=== PATIENT | male | born 1970 | race Caucasian/White ===

== ENCOUNTER → 2020-07-19 11:58 | Outpatient (CLI) | payer OTHER, SELFPAY ==
[2020-07-19 13:17] LABS: COVID19 -Nasal RAPID Negative (Negative)
== END ==
PROVIDERS: Family Provider Family Medicine; PCP Family Medicine; Visit Provider Nurse Practitioner Family
DX: Z01.812 Encounter for preprocedural laboratory examination (principal); Z20.822 Contact with and (suspected) exposure to COVID-19
CPT/HCPCS: 87635; C9803

== ENCOUNTER 2020-07-21 14:53 | Day surgery (SDC) | payer OTHER, SELFPAY ==
[2020-07-21] VITALS (10 sets, daily range): BP systolic 105–132; BP diastolic 64–87; PULSE 54–62; RESP 12–20; TEMP 36.4–36.8; O2SAT 93–99; BMI 27.7
--- NOTE | 2020-07-21 12:43 | P.HP_ITS ---
History of Present Illness History of Present Illness Date Patient Seen: 07/21/20 Chief complaint: SCREENING COLONOSCOPY Narrative: 49 year old male comes in today for consideration of a screening colonoscopy. There have been no lower GI symptoms suggesting disease such as change in bowel habits, bleeding, abdominal pain or anemia. There's been no family history of colon cancer or colon polyps. Overall health issues have been stable, including no major cardiac events for at least 6 weeks. PCP: Dr. 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 Alcohol drinks/day: 5 a week >5/day in last 3 mos: no Caffeine use/day: 1 Guns in home: yes Dental Care w/in 6 mos.: no Sun Exposure: occasionally Fall Risk: no falls in past year Seat Belt Use: yes Smoking Status: current every day smoker Tobacco Type: cigarettes Counseled to Quit Smoking: yes Packs/Day: 1 pack a week Drug Use: marijuana HIV High Risk Behavior: yes Patient History Family & Social History Tobacco & Substance use: Smoking Status Current every day smoker Meds Home Medications and Allergies Home Medications Medication Instructions Recorded Confirmed Type [VITAMINS] #0 07/15/12 06/12/19 History aspirin 81 mg PO QDAY #0 07/15/12 07/21/20 History albuterol sulfate 90 mcg/actuation 2 puff INHALATION Q4-6H PRN #8 gram 06/12/19 07/21/20 Rx aerosol inhaler inhalational spacing device #1 each 06/12/19 06/12/19 Rx omeprazole 20 mg PO DAILY 07/21/20 07/21/20 History Allergies Allergy/AdvReac Type Severity Reaction Status Date / Time captopril Allergy Unknown Verified 07/21/20 15:45 Review of Systems Review of Systems ROS: Yes All systems reviewed with the patient and are negative except as otherwise documented Exam Narrative Exam Narrative: GENERAL: Alert and oriented, appearing stated age and in no acute distress. HEENT: Head normocephalic/atraumatic. Pupils equal, round, and reactive to light and accomodation. Extraocular muscles intact. Tympanic membranes clear. Nasal mucosa moist, septum midline. Oral mucosa moist, no lesions. Neck soft and supple, no lymphadenopathy. LUNGS: Clear to ausculation bilaterally, no wheezes, rhonchi or rales. CV: Normal S1 and S2 with regular rate and rhythm, no audible murmurs, rubs or gallops. ABDOMEN: Soft, non-tender, non-distended, no organomegaly. Positive bowel sounds. EXTREMITIES: No clubbing, cyanosis, or edema. NEURO: Cranial nerves II through XII grossly intact, no focal deficits. PSYCH: Alert and oriented x 3. SKIN: No concerning lesions. Assessment & Plan Assessment & Plan narrative: 1. Screening for colon cancer Plan for colonoscopy. The nature and character of the procedure as well as anticipated results were discussed. The possibility of not completing the procedure was also discussed. Possible complications including aspiration pneumonia, bleeding, perforation and reaction to medications either for sedation or preparation and missed lesions were discussed. Questions were answered and proceeding to the colonoscopy was elected. Informed consent signed. I sincerely appreciate the referral allowing me to participate in this patient's care. Please contact me with any questions or concerns.
--- NOTE | 2020-07-21 12:45 | PM.OP.ENDO ---
Operative Date/Time/Diagnoses Date of procedure: 07/21/20 Procedure Notes SCOAP/Timeout: 4:20 p.m. Procedure in detail: ENDOSCOPIST: Tori Tucker MD Sedation RN: Priscilla Almaguer RN Sedation start time: 4:21 p.m. Sedation end time: 4:40 p.m. PROCEDURE: Colonoscopy INDICATIONS: 1. Screening for colon cancer MEDICATION: Levsin 0.125 mg sublingual, incremental doses of Versed and fentanyl until appropriate level sedation achieved. ASA CLASS: 2 CECAL WITHDRAWAL TIME: 7 minutes COMPLICATIONS: None. EXTENT OF PROCEDURE: Cecum. QUALITY OF PREP: Good with portions of liquid stool. PROCEDURE: Prior to insertion of the colonoscope, a digital rectal examination was accomplished with circumferential palpation of the distal rectal mucosa without significant findings being noted. The high-definition colonoscope was passed into the rectum in the usual fashion and advanced over to the cecum without difficulty. The ileocecal valve, appendiceal stoma, and medial wall all could be inspected and no abnormalities were seen. ASCENDING COLON: As the colonoscope was withdrawn, care was taken to expose and inspect the haustral folds and no abnormalities were seen. HEPATIC FLEXURE: Normal, no polyps, diverticula or other abnormalities. TRANSVERSE COLON: Normal, no polyps, diverticula or other abnormalities. DESCENDING COLON: Normal, no polyps, diverticula or other abnormalities. SIGMOID COLON: Normal,no polyps, diverticula or other abnormalities. RECTUM: Normal. J maneuver was produced. There was no significant perianal disease. The J maneuver was broken. The remainder of the rectum was inspected and there was no external hemorrhoid disease. The scope was withdrawn. IMPRESSION: 1. Normal colonoscopy PLAN: 1. Repeat colonoscopy in 10 years. The possibility of a missed lesion including a malignancy has been discussed with the patient previously. Potential alarm symptoms have been discussed and should be reported immediately.
[2020-07-21] MEDS: HYOSCYAMINE 0.125 MG TABLET PO (15:19)
[2020-07-21] MEDS: LACTATED RINGERS 1,000 ML 200 ML IV (15:20)
[2020-07-21] MEDS: fentaNYL 250 MCG/5 ML INJ IV (16:30)
[2020-07-21] MEDS: MIDAZOLAM 5 MG/5 ML VIAL IV (16:30)
== END 2020-07-21 17:36 | disposition home or self-care (01) ==
PROVIDERS: Family Provider Family Medicine; PCP Family Medicine; Referring Provider Family Medicine; Visit Provider Student in an Organized Health Care Education/Training Program
PROC: 0DJD8ZZ Inspection of Lower Intestinal Tract, Via Natural or Artificial Opening Endoscopic (ICD-10-PCS; CPT 45378; principal; 2020-07-21 16:00)
DX: Z12.11 Encounter for screening for malignant neoplasm of colon (principal); F17.210 Nicotine dependence, cigarettes, uncomplicated
CPT/HCPCS: G0121; J2250; J3010

== ENCOUNTER → 2021-08-24 15:23 | Outpatient (CLI) | payer OTHER, SELFPAY ==
--- NOTE | 2021-08-24 | DI.RAD.S_ITS ---
PROCEDURE: XR CHEST 2V INDICATIONS: Acute cough TECHNIQUE: 2 views of the chest were acquired. COMPARISON: [facility], , CHEST 2 VIEW, 08/05/2017, 12:50. FINDINGS: Surgical changes and devices: Sternotomy wires are well aligned. Lungs and pleura: No consolidation, pleural effusions or pneumothorax. Mediastinum: Mediastinal contours are normal. The cardiac silhouette is upper limits of normal. Bones and chest wall: No suspicious bony abnormalities. Soft tissues appear unremarkable. IMPRESSION: No acute cardiopulmonary abnormality. Dictated by: Josiah Engel M.D. on 08/24/2021 at 16:01 Approved by: Josiah Engel M.D. on 08/24/2021 at 16:02
== END ==
PROVIDERS: Family Provider Family Medicine; PCP Family Medicine; Referring Provider Family Medicine; Visit Provider Family Medicine
DX: R05.1 Acute cough (principal); F17.210 Nicotine dependence, cigarettes, uncomplicated
CPT/HCPCS: 71046

== ENCOUNTER → 2024-01-27 15:23 | Outpatient (CLI) | payer OTHER, SELFPAY ==
--- NOTE | 2024-01-27 15:25 | DI.RAD.S_ITS ---
PROCEDURE: XR CHEST 2V INDICATIONS: COUGH TECHNIQUE: 2 views of the chest were acquired. COMPARISON: [facility], CR, XR CHEST 2V, 08/24/2021, 15:19. FINDINGS: Surgical changes and devices: Sternotomy changes noted. Lungs and pleura: Lungs are clear. No pleural effusions or pneumothorax. Mediastinum: Mediastinal contours are normal. Heart size is normal. Bones and chest wall: No suspicious bony abnormalities. Soft tissues appear unremarkable. IMPRESSION: No acute cardiopulmonary abnormality is seen. Dictated by: Isreal Duarte M.D. on 01/28/2024 at 16:02 Approved by: Isreal Duarte M.D. on 01/28/2024 at 16:03
== END ==
LOC: RAD 15:24
PROVIDERS: Family Provider Family Medicine; PCP Family Medicine; Referring Provider Family Medicine; Visit Provider Family Medicine
DX: R05.1 Acute cough (principal)
CPT/HCPCS: 71046